=== PATIENT | male | born 1945 | race Caucasian/White ===

== ENCOUNTER → 2018-12-01 09:31 | Outpatient (CLI) | payer OTHER | END | disposition home or self-care (01) | LOC: D.HCCARDIO 09:00 | PROVIDERS: ATTEND Internal Medicine Cardiovascular Disease | DX: R07.9 Chest pain, unspecified (principal) ==

== ENCOUNTER 2018-12-21 11:44 | Outpatient (CLI) | payer OTHER ==
[~2018-12-21] VITALS: Ht 190.5 cm; Wt 131.4 kg
--- NOTE | ~2018-12-21 | HEMODYNAMI ---
PATIENT:SAMANTHA HUITRON JR MEDICAL RECORD: [id number] : 49 LOCATION:D.CAT ADMISSION DATE: 12/21/18 Generatedon:12/21/201815:32 Patient name: SAMANTHA HUITRON Patient #: [id number] SSN: : 1945 Date of study: 12/21/2018 Page: Of Hemodynamic Procedure Report Patient Data Patient Demographics Procedure consent was obtained First Name: SAMANTHA Gender: Male Last Name: ELANA Suffix: [facility] Initial: Ruma : 1945 Patient #: [id number] Age: 73 year(s) Race: Unknown Additional ID: [id number] Contact details Address: [address] [place] [address] State: [place] City: [facility] [place] Zip code: [address] Past Medical History Allergies: No known allergies Admission Admission Data Admission Date: 12/21/2018 Admission Time: 11:44 Height (in.): 73 BSA: 2.52 (m2) Height (cm.): 185.42 BMI: 38.39 (kg/m2) Weight (lbs.): 291 Weight (kg.): 132 Lab Results Lab Result Date: 12/21/2018 Lab Result Time: 12:25 Biochemistry Name Units Result Min Max BUN mg/dl 19 --(----)*- 7 18 Creatinine mg/dl 1.1 --(--*-)-- 0.6 1.3 CBC Name Units Result Min Max Hematocrit % 43.3 --(*---)-- 42 54 Hemoglobin g/dl 15.3 --(-*--)-- 13.5 17.5 Procedure Procedure Types Cath Procedure Diagnostic Procedure [facility] w/Coronaries Aortic Root Angiography Sedation Charges Moderate Sedation up to 30 minutes Procedure Description Procedure Date Procedure Date: 12/21/2018 Procedure Start Time: 15:01 Procedure End Time: 15:31 Procedure Staff Name Function Michael Preston MD Performing Physician Benitez Huerta RT Monitor Vicente Stewart RN Nurse Gloria Villegas RT Scrub Anitha Momin RN Curtain Supervisor Procedure Data Cath Procedure Fluoroscopy Diagnostic fluoroscopy Total fluoroscopy Time: 8.5 time: 8.5 min min Diagnostic fluoroscopy Total fluoroscopy dose: dose: 1677 mGy 1677 mGy Contrast Material Contrast Material Type Amount (ml) Isovue 370 145 Entry Location Entry Primary Successful Side Size Upsize Upsize Entry Closure Succes sful Closure Location (Fr) 1 (Fr) 2 (Fr) Remarks Device Remarks Radial Right 6 Fr Exoseal artery Short Estimated blood loss: 5 ml Diagnostic catheters Device Type Used For End Catheter Placement DIAGNOSTIC Jared 110cm Procedure 5Fr catheter ([id number]) DIAGNOSTIC AR MOD 5Fr Procedure Catheter ([id number]) DIAGNOSTIC AR2 MOD 5 Fr Procedure catheter ([id number]) DIAGNOSTIC AL2 5Fr Procedure catheter ([id number]) DIAGNOSTIC [place] 4.5 5Fr Procedure catheter (248094) DIAGNOSTIC Pigtail 5Fr Procedure catheter ([id number]) Procedure Complications No complications Procedure Medications Medication Administration Route Dosage 0.9% NaCl I.V. 100 ml/hr Oxygen etCO2 Nasal cannula 2 l/min Lidocaine 2% added to field 20 Heparin Flush Bag added to field 2 bags (1000units/500ml NS) Radial Cocktail added to field 1 syringe (Verapamil 2mg/Nitro 400mcg/Heparin 1500units) Versed I.V. 2 mg Fentanyl I.V. 100 mcg Hemodynamics Rest BSA: 2.52 (m2) HGB: 15.3 (g/dl) O2 Consumption: Estimated: 286.98 (ml/min) O2 Co nsumption indexed: Estimated:113.88 (ml/min/m) Heart Rate: 66 (bpm) Pressure Samples Time Site Value (mmHg) Purpose Heart Use Rate(bpm) 15:05 LV 141/-9,11 Snapshot 79 15:06 AO 104/58(75) Pullback 81 15:06 LV 138/-8,8 Pullback 81 Gradients Valve Time Site 1 Site 2 Mean SEP/DFP Peak To Heart Use (mmHg) (sec/min) Peak Rate (mmHg) (bpm) Aortic 15:06 LV AO 18 19 34 81 138/-8,8 104/58(75) Calculations Valve P-P Mean Valve Index Valve Source Name Gradient Area Flow (cm2) Aortic 34 18 34 18 Snapshots Pre Cath Intra NCS Post Cath Vital Signs Time Heart Resp SPO2 etCO2 NIBP (mmHg) Rhythm Pain Sedation Rate (ipm) (%) (mmHg) Status Level (bpm) 14:53:53 68 19 98 18 163/110(148) NSR 0 (11) 10(A) , No pain 14:58:28 70 14 98 17 163/100(130) NSR 0 (11) 9(A) , No pain 15:03:00 68 12 97 13.4 152/93(126) NSR 0 (11) 9(A) , No pain 15:07:30 75 14 98 17.1 138/80(115) NSR 0 (11) 9(A) , No pain 15:11:57 76 17 98 15.6 143/82(105) NSR 0 (11) 9(A) , No pain 15:16:25 83 17 98 16.3 138/85(105) NSR 0 (11) 9(A) , No pain 15:20:51 71 14 96 20.8 136/73(110) NSR 0 (11) 9(A) , No pain 15:25:15 65 17 98 26 130/76(97) NSR 0 (11) 10(A) , No pain 15:29:40 65 15 99 29 133/80(114) NSR 0 (11) 10(A) , No pain Medications Time Medication Route Dose Verified Delivered Reason Notes E ffectiveness by by 14:55:34 Versed I.V. 2 mg Michael Buffie for Mohan Stewart RN sedation 14:55:44 Fentanyl I.V. 100 mcg Michael Buffie for Mohan Stewart RN sedation 15:03:37 0.9% NaCl I.V. 100 Michael Anitha used for ml/hr Mohan Momin health and safety specialist 15:03:44 Oxygen etCO2 2 l/min Michael Anitha used for Nasal Mohan Momin procedure cannula RN 15:03:51 Lidocaine 2% added 20ml Michael Michael for local to vial Mohan Preston MD anesthetic field 15:03:56 Heparin Flush added 2 bags Michael Michael used for Bag to Mohan Preston MD procedure (1000units/500ml field NS) 15:04:15 Radial Cocktail added 1 Michael Michael used for (Verapamil to syringe Preston MD Preston MD procedure 2mg/Nitro field 400mcg/Heparin 1500units) Procedure Log Time Note 14:37:50 Signed procedure consent form obtained from patient. 14:37:51 Diagnostic Cath status Elective 14:37:52 Time tracking: Regular hours (M-F 7:00 - 5:00) 14:37:55 Plan of Care:Hemodynamics will remain stable., Cardiac rhythm will remain stable., Comfort level will be maintained., Respiratory function will remain adequate., Patient/ family verbilizes understanding of procedure., Procedure tolerated without complication., Recovers from procedure without complications.. 14:39:34 Vicente Stewart RN sent for patient. Start room use. 14:40:27 Patient Height : 73 inches 14:40:30 Patient Weight : 291 lbs 14:45:00 Patient received from Pre/Post Procedure Room to CCL 1 Alert and oriented. Tansferred to table in Supine position. 14:45:02 Warm blankets applied, and cristian hugger turned on for patient comfort. 14:45:02 Correct patient and procedure confirmed by team. 14:45:03 ECG and BP/O2 sat monitors applied to patient. 14:45:47 NEEDLE Cook 21G 4cm Radial ([id number]) opened to sterile field. 14:46:28 H&P Date Dictated: 11/11/2018 Within 30 days and on chart., H&P Addendum completed by physician on day of procedure. (MUST COMPLETE FOR ALL OUTPATIENTS). 14:46:36 Pre-procedure instructions explained to patient. 14:46:38 Pre-op teaching completed and patient verbalized understanding. 14:47:24 Family in waiting room. 14:47:32 Patient NPO since Breakfast. 14:47:40 Patient allergic to No known allergies 14:47:42 Is the patient allergic to Iodine/contrast media? No. 14:47:43 Is patient on blood thinner?No 14:47:44 Patient diabetic? No. 14:47:58 Previous problem with sedation/anesthesia? No ? 14:47:59 Snore? Yes 14:48:00 Sleep apnea? No 14:48:00 Deviated septum? No 14:48:01 Opens mouth fully? Yes 14:48:02 Sticks out tongue? Yes 14:48:09 Airway obstruction? No ? 14:48:11 Dentures? No ? 14:48:15 Pre procedure: right dorsailis pedis pulse 2+ Normal; easily identifiable; not easily obliterated 14:48:21 IV patent on arrival in left hand with 0.9% NaCl at [facility]. 14:50:09 Lab Result : BUN 19 mg/dl 14:50:09 Lab Result : Creatinine 1.1 mg/dl 14:50:09 Lab Result : Hemoglobin 15.3 g/dl 14:50:09 Lab Result : Hematocrit 43.3 % 14:50:14 Lab results completed and on chart. 14:50:19 Modified Jonathan's test Ulnar > 7 seconds. 14:50:28 Right Radial & Right Groin area was prepped with chlora-prep and draped in sterile fashion 14:50:31 Alarms reviewed by R. N. 14:50:32 Sharps counted by scrub and verified by R.N. 14:50:34 Use device set Radial Dx or PCI 14:50:35 ACIST Syringe (04380) opened to sterile field. 14:50:35 Medline Cath Pack ([id number]) opened to sterile field. 14:50:36 Bag Decanter (2002S) opened to sterile field. 14:50:37 ACIST Hand Control (92836) opened to sterile field. 14:50:37 ACIST Manifold (97833) opened to sterile field. 14:50:37 Tegaderm 4 x 4 (1626W) opened to sterile field. 14:50:38 MBrace Wrist Support ([id number]) opened to sterile field. 14:50:39 SHEATH 6FR Slender (801060) opened to sterile field. 14:50:40 DIAGNOSTIC WIRE .035 260cm J wire (557110) opened to sterile field. 14:52:31 Vital chart was started 14:52:32 Baseline sample Acquired. 14:52:46 Rhythm: sinus rhythm 14:52:47 Full Disclosure recording started 14:54:02 Physician arrived 14:54:03 --------ALL STOP TIME OUT------ 14:54:03 Final Timeout: patient, procedure, and site verified with staff and physician. All members of the team are in agreement. 14:54:05 Right Radial & Right Groin site verified by team. 14:54:07 Maximum allowable Isovue 300 dose 300ml. Physician notified. (300ml for normal creatinines. For patients with creatinine of 1.7 or higher multiply weight(kg) x 5 divided by creatinine.) 14:54:11 Fire Safety Assessment: A--An alcohol-based skin anteseptic being used preoperatively., C--Open oxygen or nitrous oxide is being used., D--An ESU, laser, or fiber-optic light is being used. 14:54:14 Physical assessment completed. ASA score P 2 - A patient with mild systemic disease as per Michael Preston MD. 14:54:16 Sedation plan: IV Moderate Sedation Medication:Versed, Fentanyl 14:55:34 Versed 2 mg I.V. was administered by Vicente Stewart RN; for sedation; 14:55:44 Fentanyl 100 mcg I.V. was administered by Vicente Stewart RN; for sedation; 14:59:28 Zero performed for pressure channel P1 15:01:20 Procedure started. 15:01:24 Local anesthetic to right radial artery with Lidocaine 2% by Michael Preston MD.INITIAL ACCESS ONLY 15:03:18 A 6 Fr Short sheath was inserted into the Right Radial artery 15:03:37 0.9% NaCl 100 ml/hr I.V. was administered by Anitha Momin RN; used for procedure; 15:03:44 Oxygen 2 l/min etCO2 Nasal cannula was administered by Anitha Momin RN; used for procedure; 15:03:51 Lidocaine 2% 20ml vial added to field was administered by Michael Preston MD; for local anesthetic; 15:03:56 Heparin Flush Bag (1000units/500ml NS) 2 bags added to field was administered by Michael Preston MD; used for procedure; 15:04:08 A DIAGNOSTIC Jared 110cm 5Fr catheter (062010) was advanced over the wire and used for Procedure. 15:04:15 Radial Cocktail (Verapamil 2mg/Nitro 400mcg/Heparin 1500units) 1 syringe added to field was administered by Michael Preston MD; used for procedure; 15:05:40 LV gram done using PARK 15:05:44 Injector settings: Ml/sec: 5, Volume: 15, 15:05:45 LV hemodynamics recorded. 15:05:54 EF : 60 % 15:06:31 LCA angiography performed. 15:09:41 Catheter exchanged over wire. 15:09:54 A DIAGNOSTIC AR MOD 5Fr Catheter (024634W) was advanced over the wire and used for Procedure. 15:12:11 RCA angiography performed. 15:12:57 Catheter exchanged over wire. 15:13:12 A DIAGNOSTIC AR2 MOD 5 Fr catheter (458870R) was advanced over the wire and used for Procedure. 15:15:39 Catheter exchanged over wire. 15:16:03 A DIAGNOSTIC AL2 5Fr catheter (785978F) was advanced over the wire and used for Procedure. 15:16:51 RCA angiography performed. 15:18:39 Catheter exchanged over wire. 15:18:50 A DIAGNOSTIC [place] 4.5 5Fr catheter (919632) was advanced over the wire and used for Procedure. 15:20:12 RCA angiography performed. 15:20:40 Catheter exchanged over wire. 15:20:51 A DIAGNOSTIC Pigtail 5Fr catheter (277241X) was advanced over the wire and used for Procedure. 15:21:45 Aortic Root visualized 15:23:52 Catheter removed. 15:23:58 EXOSEAL 5Fr (EX500) opened to sterile field. 15:24:07 Sheath removed intact; hemostasis achieved with Exoseal to the Right Radial artery. 15:24:09 Procedure ended.(Physican Out) 15:25:51 TR BAND Large ([id number]) opened to sterile field. 15:27:57 Fluoroscopy time 08.50 minutes. 15:28:56 Fluoroscopy dose: 1677 mGy 15:28:56 Flurop Dose total: 1677 15:29:09 Contrast amount:Isovue 370 145ml. 15:29:14 Sharps counted by scrub and verified by R.N. 15:29:16 TR band inflated with 12cc of air. 15:29:18 Insertion/operative site no bleeding no hematoma. 15:29:22 Post right radial artery:stable, soft, clean and dry 15::23 Post Procedure Pulses reassessed and unchanged ::25 Post-procedure physical assessment completed. ASA score P 2 - A patient with mild systemic disease as per Michael Preston MD. 15:29:27 Post procedure rhythm: unchanged. ::29 Estimated blood loss: 5 ml 15::31 Post procedure instruction explained to patient.Patient verbalizes understanding. ::31 Patient needs reinforcement of post procedure teaching. 15:29:45 Procedure type changed to Cath procedure, Diagnostic procedure, LHC, LHC w/Coronaries, Aortic Root Angiography, Sedation Charges, Moderate Sedation up to 30 minutes 15:31:23 Procedure and supply charges have been captured, reviewed, submitted and are correct. 15:31:25 Procedure Complication : No complications 15:31:27 Vital chart was stopped 15:31:28 See physician's report for complete and final results. 15:31:30 Report given to Pre/Post Procedure Room. 15:31:33 Patient transfered to Pre/Post Procedure Room with Stretcher. 15:31:35 Procedure ended. 15:31:35 Full Disclosure recording stopped 15::45 End room use (Document Last) Device Usage Item Name Manufacture Quantity Catalog Hospital Part Current Minimal Lot# / Number Charge Number Stock Stock Serial# Code ACIST Acist 1 53735 372724 211493 399212 20 Syringe Medical (41206) Systems Inc Medline Medline 1 [id number] 153047 68098 558381 5 Cath Pack ([id number]) Bag Microtek 1 812637 49849 220264 5 Decanter Medical Inc. () ACIST Hand Acist 1 74483 288507 951678 582750 5 Control Medical (30612) Systems Inc ACIST Acist 1 06531 347493 711842 498228 5 Manifold Medical (13923) Systems Inc Tegaderm 4 3M 1 1626W 129866 197331 592200 5 x 4 (1626W) MBrace Advanced 1 140-0250-00 558286 28190 393334 5 Wrist Vascular Support Dynamics ([id number]) SHEATH 6FR Terumo 1 [id number] 216135 142322 044996 5 Slender (80-1060) DIAGNOSTIC St Jeff 1 444287 854431 999704 765316 30 WIRE .035 260cm J wire (305970) DIAGNOSTIC Terumo 1 57-8412 530850 013094 373362 5 Jared 110cm 5Fr catheter (965969) DIAGNOSTIC Cardinal 1 267228R 926055 002460 477884 15 AR MOD 5Fr Health Catheter (677795X) DIAGNOSTIC Cardinal 1 838338O 442138 768683 520686 20 AR2 MOD 5 Health Fr catheter (394040G) DIAGNOSTIC Cardinal 1 170696T 608371 219436 686163 15 AL2 5Fr Health catheter (011599N) DIAGNOSTIC Terumo 1 40-5012 359966 564157 301405 5 [place] 4.5 5Fr catheter (450102) DIAGNOSTIC Cardinal 1 604802P 504257 484624 213836 5 Pigtail 5Fr Health catheter (753533Z) EXOSEAL 5Fr Cardinal 1 EX500 952238 984968 909426 10 (EX500) Health TR BAND Terumo 1 AIR68-YOJ 936713 996678 469371 40 Large (GWO38DMM) NEEDLE [facility] 1 N24530 896980 285778 032167 5 21G 4cm Radial (M77921) Signature Audit [place] Stage Time Signature Unsigned Intra-Procedure 12/21/2018 Benitez Huerta 3:32:33 PM RT(R) Signatures Monitor : Benitez Huerta RT Signature : Date : Time : [facility] [address] [place] [address]
[2018-12-21] MEDS ORDERED: ASPIRIN325 MG PO (12:14)
[2018-12-21] MEDS ORDERED: NORVASC5 MG PO (12:14)
[2018-12-21] MEDS ORDERED: LOSARTAN/HCT TAB 100 PO (12:14)
[2018-12-21] MEDS ORDERED: FLUTICASONE PRO16 GM NASAL (12:15)
[2018-12-21] MEDS ORDERED: ALBUTEROL SULF8.5 GM INH (12:16)
[2018-12-21] MEDS ORDERED: IPRAT-ALBUT 0.5-3 ML UPD (12:17)
[2018-12-21] MEDS ORDERED: VALIUM10 MG PO (12:17)
[2018-12-21 12:19] VITALS: BP 127/75; Ht 190.5 cm; Wt 131.4 kg
[2018-12-21 12:29] LABS: BASOPHILS 0.8 % (0-2); EOSINOPHILS 7.9 % (0-7); HEMATOCRIT 43.3 % (42.0-54.0); HEMOGLOBIN 15.2 g/dL (13.5-17.5); IMMATURE GRANULOCYTES 0.6 % (0-5); LYMPHOCYTES 26.3 % (15-50); MCH 33.7 pg (26.0-34.0); MCHC 35.1 g/dL (31.0-37.0); NEUTROPHILS 56.4 % (40-80); PLATELET COUNT 227 10x3/uL (130-400); RBC 4.51 10x6/uL (4.20-6.10); RDW 12.8 % (11.5-14.5); WBC 8.8 10x3/uL (4.8-10.8)
[2018-12-21 12:43] LABS: ANION GAP 11.6 mmol/L (8-16); CALCIUM 9.4 mg/dL (8.5-10.1); CARBON DIOXIDE 27.8 mmol/L (21.0-32.0); CREATININE - SERUM 1.1 mg/dL (0.6-1.3); POTASSIUM - SERUM 3.4 mmol/L (3.5-5.1)
--- NOTE | 2018-12-21 15:35 | NUR ---
PT ARRIVED BY STRETCHER. PLACED ON MONITORS AND ASSESSMENT COMPLETED. RIGHT RADIAL TR BAND IN PLACE. CALL LIGHT WITHIN REACH. FAMILY AT BEDSIDE AND SPOKE WITH PT'S FAMILY AND PT.
--- NOTE | 2018-12-21 15:50 | NUR ---
PT RESTING COMFORTABLY. RIGHT RADIAL TR BAND IN PLACE. NO BLEEDING/HEMATOMA NOTED. VSS.
--- NOTE | 2018-12-21 16:18 | NUR ---
PT SITTING UP AND EATING/DRINKING. DENIES NAUSEA. RIGHT RADIAL TR BAND IN PLACE. NO BLEEDING/HEMATOMA NOTED.
--- NOTE | 2018-12-21 16:35 | NUR ---
3cc OF AIR REMOVED FROM TR BAND. NO BLEEDING/HEMATOMA NOTED. VSS. PT SITTING UP AND VISITING WITH FAMILY. TOLERATED FOOD. DENIES NAUSEA OR PAIN.
--- NOTE | 2018-12-21 16:50 | NUR ---
3cc OF AIR REMOVED FROM TR BAND. PT TOLERATED WELL. NO BLEEDING/HEMATOMA NOTED.
--- NOTE | 2018-12-21 17:10 | NUR ---
3cc OF AIR REMOVED FROM TR BAND. PT TOLERATED WELL. LEFT HAND PIV D/C'D WITH CATH TIP INTACT. PT INSTRUCTED TO GET UP AND DRESSED. FAMILY AT BEDSIDE.
--- NOTE | 2018-12-21 17:26 | NUR ---
PT AMBULATED TO RESTROOM. VOIDED WITHOUT DIFFICULTY. BACK TO ROOM. STEADY GAIT NOTED.
--- NOTE | 2018-12-21 17:35 | NUR ---
TR BAND REMOVED. DRESSING APPLIED. NO BLEEDING/HEMATOMA NOTED. RIGHT WRIST BRACE ON PT. INSTRUCTED TO KEEP ON FOR 2 HOURS AFTER ARRIVAL HOME. HE VOICED UNDERSTANDING.
--- NOTE | 2018-12-21 17:45 | NUR ---
DISCUSSED DISCHARGE INSTRUCTIONS WITH PT AND PT'S FAMILY. THEY VOICED UNDERSTANDING.
--- NOTE | 2018-12-21 18:00 | NUR ---
PT TAKEN OUT TO VEHICLE BY WHEELCHAIR. NO S/S OF DISTRESS NOTED. ALL BELONGINGS AND PAPERWORK IN HAND.
== END 2018-12-21 18:00 | disposition home or self-care (01) ==
LOC: D.CATH 11:44
PROVIDERS: ATTEND Internal Medicine Cardiovascular Disease
DX: I25.119 Atherosclerotic heart disease of native coronary artery with unspecified angina pectoris (principal); Z01.812 Encounter for preprocedural laboratory examination; I10 Essential (primary) hypertension; J45.909 Unspecified asthma, uncomplicated; Z82.49 Family history of ischemic heart disease and other diseases of the circulatory system

== ENCOUNTER 2018-12-30 12:49 | Inpatient (IN) | payer OTHER ==
[~2018-12-30 12:49] MED LIST: ALBUTEROL SULF8.5 GM INH; ASPIRIN325 MG PO; FLUTICASONE PRO16 GM NASAL; IPRAT-ALBUT 0.5-3 ML UPD; LOSARTAN/HCT TAB 100 PO; NORVASC5 MG PO; VALIUM10 MG PO
[2018-12-30] MEDS ORDERED: HYDROCODON-ACE1 EA10 PO (13:22)
[2018-12-30 14:44] LABS: BASOPHILS 0.9 % (0-2); EOSINOPHILS 9.9 % (0-7); HEMATOCRIT 46.4 % (42.0-54.0); HEMOGLOBIN 16.1 g/dL (13.5-17.5); IMMATURE GRANULOCYTES 0.5 % (0-5); LYMPHOCYTES 29.9 % (15-50); MCH 33.7 pg (26.0-34.0); MCHC 34.7 g/dL (31.0-37.0); MCV 97.1 fL (80.0-100.0); MEAN PLATELET VOLUME 9.8 fL (7.4-10.4); MONOCYTES 7.9 % (2-11); NEUTROPHILS 50.9 % (40-80); PLATELET COUNT 241 10x3/uL (130-400); RBC 4.78 10x6/uL (4.20-6.10); RDW 12.7 % (11.5-14.5); WBC 9.8 10x3/uL (4.8-10.8)
[2018-12-30 14:52] LABS: INR 1.03 (0.85-1.17)
[2018-12-30 14:53] LABS: APPEARANCE CLEAR (CLEAR); APTT 28.8 SECONDS (22.8-39.4); BILIRUBIN NEGATIVE (NEGATIVE); COLOR YELLOW (YELLOW); GLUCOSE NEGATIVE (NEGATIVE); KETONE NEGATIVE (NEGATIVE); NITRITE NEGATIVE (NEGATIVE); PROTEIN NEGATIVE (NEGATIVE); SPECIFIC GRAVITY 1.015 (1.005-1.020); UROBILINOGEN NORMAL (NORMAL)
[2018-12-30 15:06] LABS: ALBUMIN 4.1 g/dL (3.4-5.0); ANION GAP 16.3 mmol/L (8-16); BILIRUBIN - TOTAL 0.89 mg/dL (0.2-1.3); CALCIUM 9.4 mg/dL (8.5-10.1); CARBON DIOXIDE 25.2 mmol/L (21.0-32.0); CREATININE - SERUM 1.1 mg/dL (0.6-1.3); POTASSIUM - SERUM 3.5 mmol/L (3.5-5.1); PROTEIN - SERUM 7.3 g/dL (6.4-8.2); T4 THYROXIN - FREE 0.94 ng/dL (0.76-1.46); THYROID STIMULATING HORMONE 0.83 uIU/mL (0.36-3.74); URIC ACID 6.6 mg/dL (2.6-7.2)
[2019-01-02] VITALS (37 sets, daily range): BP systolic 89–167; BP diastolic 47–100; BMI 37.3; BMI 37.0
--- NOTE | 2019-01-02 14:30 | NUR ---
ARRIVED FROM OR AROUND 1416 VIA BED. ON VENT R-14 TV500, FIO2 100%, PEEP 5. ETT 8.0 24 AT THE LIP. MIDSTERNAL INCISION WITH DRESSING CDI. CT X 3 9(Y'D TOGETHER) CONNECTED TO 20CM H20 SUCTION. NO AIR LEAK NOTED. L-MORTEZA DRAIN NOTED. TPM WIRES X 1 COILED AND SECURED. CRITICORE REMY IN PLACE WITH YELLOW URINE NOTED. R-RADIAL JOVANY SECURED WITH WRIST PROTECTOR. R-LE HARVEST SITES WRAPPED IN [place] DRESSING FROM GROIN TO ANKEL. PEDAL PULSES PALP. SAUD HOSE ON LEFT LE. WRIST RESTRAINTS IN PLACE PER ORDER. CONNECTED TO ICU MONITOR. HAS R-IJ CVL WITH PLASMOLYTE AT 100ML/HR. WILL CONTINUE TO MONITOR CLOSELY.
--- NOTE | 2019-01-02 15:06 | NUR ---
FIO2 DECREASED TO 80% BY RESPIRATORY THERAPY.
--- NOTE | 2019-01-02 15:41 | NUR ---
VENTS SETTING CHANGED BY RT SIMV, R-12, TV 500, PS 10, FIO2 40%, PEEP OF 5. PT OPENS EYES TO VOICE. FOLLOWS SIMPLE COMMANDS. WILL CONTINUE TO MONITOR CLOSELY.
--- NOTE | 2019-01-02 16:40 | NUR ---
ETT PULLED BACK TO 21 AT THE LIP BY RT PER DR. HAYNES.
--- NOTE | 2019-01-02 17:20 | NUR ---
EBONI DRIP TURNED OFF AT THIS TIME. PT OPENING EYES SPONTANOUSLY. ON CPAP TRIAL AT THIS TIME. WILL CONTINUE TO MONITOR CLOSELY.
--- NOTE | 2019-01-02 17:43 | NUR ---
DR. HAYNES NOTIFIED OF BLOOD GAS RESULTS. ORDERED TO EXTUBATE AND PLACE ON BIPAP.
--- NOTE | 2019-01-02 17:57 | NUR ---
BIPAP SETTINGS R-10 FIO2 40%.
--- NOTE | 2019-01-02 18:19 | NUR ---
RATES PAIN 8/10 ON HIS BACK AND CHEST. 2MG MORPHINE IV GIVEN FOR PAIN PER ORDERS.
--- NOTE | 2019-01-02 19:09 | NUR ---
REPORT RECEIVED, SHIFT ASSESSMENT COMPLETED PER FLOW SHEET. ON BIPAP AT 40%. RT IJ CVL PATENT, INFUSING PLASMOLYTE AT 100 ML/HR AND ZINACEF AT 11.4 ML/HR. X3 SUBSTERNAL CT TO 20 CM SUCTION, NO AIR LEAK NOTED, X1 CT TO MORTEZA DRAIN, COMPRESSED. REMY CATHETER TO GRAVITY SECURED. SAUD NUGENT AND SCD'S ON. SEE FLOW SHEET FOR COMPLETE ASSESSMENT. WILL CONTINUE TO MONITOR.
--- NOTE | 2019-01-02 19:20 | NUR ---
DR. HAYNES AT BEDSIDE TO SEE PATIENT. ORDERS RECEIVED TO KEEP PATIENT ON BIPAP AND OK TO GIVE BREAKS TOLERATED.
--- NOTE | 2019-01-02 20:01 | NUR ---
FAMILY AT BEDSIDE, UPDATE GIVEN, QUESTIONS ANSWERED. SECURITY CALL CODE SET UP BY PATIENT.
--- NOTE | 2019-01-02 20:14 | NUR ---
BIPAP REMOVED AND PLACED ON 4 L NC. WATER PROVIDED. COUGH/DEEP BREATHING AND USE OF IS ENCOURAGED. COUGH WEAK, NON-PRODUCTIVE. PULLING 750 X10 ON IS. AFTER INTERVENTIONS PATIENT O2 SAT NOTED TO BE 88%. PATIENT PLACED BACK ON BIPAP AND O2 SAT BACK UP TO 93%. REPOSITIONED IN BED. WILL CONTINUE TO MONITOR.
--- NOTE | 2019-01-02 22:00 | NUR ---
IS ENCOURAGED, PULLING 1000 X10. COUGH WEAK AND NON-PRODUCTIVE. DENIES OTHER NEEDS. CALL LIGHT WITHIN REACH. WILL CONTINUE TO MONITOR.
--- NOTE | 2019-01-02 23:01 | NUR ---
REASSESSMENT COMPLETED PER FLOW SHEET, SEE FOR DETAILS. WATER PROVIDED. DENIES OTHER NEEDS. USE OF IS ENCOURAGED, PULLING 1000 X10. WILL CONTINUE TO MONITOR.
[2019-01-03] VITALS (93 sets, daily range): BP systolic 111–166; BP diastolic 65–102; BMI 36.9
--- NOTE | 2019-01-03 00:45 | NUR ---
PATIENT IN AFIB, HR 90-110'S. CALLED AND SPOKE TO DR. HAYNES, NEW ORDERS RECEIVED FOR AMIODARONE BOLUS AND TO OBTAIN AM LABS NOW, AND TREAT POTASSIUM LEVEL PER PROTOCOL.
--- NOTE | 2019-01-03 00:52 | NUR ---
C/O NAUSEA, PRN ZOFRAN GIVEN. DENIES OTHER NEEDS. WILL CONTINUE TO MONITOR.
--- NOTE | 2019-01-03 02:00 | NUR ---
RESTING, DENIES NEEDS. CALL LIGHT WITHIN REACH.
--- NOTE | 2019-01-03 03:01 | NUR ---
REASSESSMENT COMPLETED PER FLOW SHEET, SEE FOR DETAILS. WATER PROVIDED.
--- NOTE | 2019-01-03 05:00 | NUR ---
RESTING, WATER PROVIDED, DENIES OTHER NEEDS. CALL LIGHT WITHIN REACH.
--- NOTE | 2019-01-03 06:30 | NUR ---
SUBSTERNAL DRESSING CHANGED PER DOCTOR'S ORDERS. TPM WIRES INTACT. COMPLETE BED BATH GIVEN.
--- NOTE | 2019-01-03 06:33 | NUR ---
ORAL CARE DONE WITH PERIDEX
[2019-01-03 06:39] LABS: HEMATOCRIT 39.6 % (42.0-54.0); HEMOGLOBIN 13.3 g/dL (13.5-17.5); MCH 32.8 pg (26.0-34.0); MCHC 33.6 g/dL (31.0-37.0); MCV 97.5 fL (80.0-100.0); MEAN PLATELET VOLUME 10.2 fL (7.4-10.4); RBC 4.06 10x6/uL (4.20-6.10); RDW 12.9 % (11.5-14.5); WBC 17.8 10x3/uL (4.8-10.8)
[2019-01-03 06:57] LABS: ALKALINE PHOSPHATASE 44 U/L (46-116); ALT (SGPT) 27 U/L (10-68); BILIRUBIN - TOTAL 1.33 mg/dL (0.2-1.3); CALC OSMOLALITY 284 mosm/kg (275-300); CARBON DIOXIDE 23.7 mmol/L (21.0-32.0); CHLORIDE - SERUM 106 mmol/L (98-107); POTASSIUM - SERUM 4.1 mmol/L (3.5-5.1); PROTEIN - SERUM 5.6 g/dL (6.4-8.2); SODIUM 140 mmol/L (136-145); UREA NITROGEN 18 mg/dL (7-18); eGFR NON AFRICAN AMERICAN 78 mL/min (90-120)
--- NOTE | 2019-01-03 07:00 | NUR ---
ASSISSTED OOB TO CHAIR X3 PERSON ASSISST. TOLERATED WELL. ON 4 L NC, O2 SAT 93%. INSTRUCTED PATIENT TO COUGH/DEEP BREATHE AND USE IS. PULLING 1240 X10 ON IS. COUGH STRONG AND NON-PRODUCTIVE.
[2019-01-03 07:02] LABS: GLUCOSE 170 mg/dL (74-106)
--- NOTE | 2019-01-03 07:42 | NUR ---
DR. HAYNES IN UNIT. ORDERED TO DC JOVANY, REMY CATHETER, AND PLASMOLYTE, AND TO KEEP PT OFF BIPAP DURING DAY. BIPAP FOR AN HOUR IF NEEDED Q 4HRS.
--- NOTE | 2019-01-03 08:47 | NUR ---
SPOKE WITH VENECIA ELANA PATIENT'S SON. PASS CODE VERIFIED. BRIEF UPDATE GIVEN. LOPRESSOR 25MG TAB GIVEN PER DR. HAYNES. JOVANY DC'D PER ORDERS. REMY CATHETER DC'D PER ORDERS. URINAL PROVIDED. PT ATE 100% OF CLEAR LIQUID MEAL. WILL CONTINUE TO MONITOR.
--- NOTE | 2019-01-03 09:55 | OP ---
PATIENT NAME: IVANNA HUITRON JR MEDICAL RECORD: [id number] :49 LOCATION:D.CVI D.CV02 ADMISSION DATE:01/02/19 SURGEON: CAMDEN HAYNES MD DATE OF OPERATION: 01/02/2019 SURGEON: Camden Haynes MD MANAGER MILITARY: Cipriano Delatorre. OPERATION PERFORMED: 1. Coronary artery bypass graft times 4 (left internal mammary artery to LAD, reverse saphenous vein graft from aorta to first diagonal, aorta to obtuse marginal #1, and aorta to ongoing right coronary artery). 2. Endoscopic saphenous vein harvest. PREOPERATIVE DIAGNOSIS: Coronary artery disease. POSTOPERATIVE DIAGNOSIS: Coronary artery disease. ANESTHESIA: General endotracheal anesthesia. ESTIMATED BLOOD LOSS: Total cardiopulmonary bypass with Cell Saver retransfusion. COMPLICATIONS: None. SPECIMEN: None. CONDITION: Stable. DISPOSITION: CV ICU. OPERATIVE FINDINGS: 1. Good quality, but thin-walled greater saphenous vein from the right lower extremity. 2. A 50% ejection fraction by transesophageal echocardiography with mild left ventricular hypertrophy. 3. Relatively large heart, but not overly fatty. 4. Good quality left internal mammary artery, the LAD was a severely diseased 2.0-mm vessel at the site of anastomosis and a 1.5 mm probe passed distally to the apex. 5. First diagonal vessel was a 1.5 mm vessel. 6. First obtuse marginal was 2.0 mm, the second obtuse marginal was smaller and not grafted. 7. The right coronary artery and posterior descending artery were completely calcified throughout and not amenable to bypass, the ongoing right coronary artery was a 2.0-mm vessel. OPERATIVE INDICATION: Coronary artery disease. OPERATIVE SUMMARY IN DETAIL: The patient was brought to the operating suite. General anesthesia obtained. The patient was prepped and draped. Greater saphenous vein was harvested from this patient's right lower extremity utilizing endoscopic technique. Side branches were divided with electrocautery. The vessel was ligated proximally and distally and removed. Side branches were tied OPERATIVE REPORT [id number] IVANNA HUITRON JR and thin spots and leakage sites were oversewn. Later, the leg was irrigated and closed in 2 layers and wrapped with elastic wrap. Median sternotomy incision was made. Subcutaneous tissue divided with electrocautery. The sternum was divided with a saw. The left hemisternum was elevated. Left internal mammary artery and vein were taken down as a pedicle graft. Sternal retractor was placed. Pericardium was opened. Heparin was given. Aorta was cannulated. Dual stage venous cannula was inserted. The internal mammary was clipped distally and made ready for anastomosis. Activated clotting time was appropriately elevated. The patient was placed on cardiopulmonary bypass. Sites for distal anastomosis were selected. Antegrade cardioplegic cannula was inserted. The patient was cooled to about 34 degrees by allowing the temperature to drift. Crossclamp was placed. Cardioplegia was given antegrade and this was repeated at 50-minute intervals including down the completed vein graft. Distal anastomoses were performed in standard technique. Proximal anastomosis with single cross-clamp technique. Aortic root de-aired by removing the cross clamp, venting the root, tying the proximal anastomoses, deairing the vein grafts and restoring flow. Proximal and distal anastomotic sites inspected for bleeding. Single sutures in the proximal anastomotic site. The patient resumed a spontaneous rhythm, fully rewarmed, weaned from cardiopulmonary bypass and was stable. The patient was decannulated. The cannula sites were oversewn. Protamine was given. Thorough irrigation was undertaken. Hemostasis was assured and all grafts lay appropriately. The drains were placed in the mediastinum and both pleural cavities. Ventricular pacing wires were placed. Pericardial fat was loosely reapproximated at midline. Left chest was evacuated and irrigated. The internal mammary artery site was inspected for bleeding. Sternum closed with wires. The patient was stable. The chest closed. Fascia was closed. Subcutaneous tissue was closed. Skin was closed. Dermabond was placed. The needle and sponge counts were reported as correct. The patient was taken to the ICU in stable condition. TRANSINT:[id number] Voice Confirmation ID: [id number] DOCUMENT ID: [id number] CAMDEN HAYNES MD at 0955 CC: FARIDEH MUÑIZ M.D. and EDUARDO BARNETT MD [id number] DICTATION DATE: 01/02/191846 RN NEW GRAD: 01/02/19 2194 ADM IN [place] [id number] [place] [id number]
--- NOTE | 2019-01-03 10:15 | NUR ---
DR. HAYNES REMOVED CHEST TUBES. L MORTEZA DRAIN LEFT IN PLACE. DRESSING CHANGED AT THIS TIME. TPM WIRES COILED AND SECURED. PT WAS GIVEN MORPHINE 2MG IV BEFORE REMOVAL OF CHEST TUBES PER DR. HAYNES. PT TOLERATED WELL. RESTING IN BED. WILL CONTINUE TO MONITOR.
--- NOTE | 2019-01-03 16:32 | NUR ---
BLOOD GLUCOSE 228. 2UNITS OF INSULIN GIVEN PER PROTOCOL. INSULIN DRIP STARTED AT 1UNIT/HR PER PROTOCOL. BP 159/80. CURRENTLY ON 6.8ML OF NITRO. 10MG IV APRESOLINE GIVEN PER ORDERS. WILL CONTINUE TO MONITOR. AND TREAT.
--- NOTE | 2019-01-03 17:45 | NUR ---
PT DINNER TRAY HAS NOT YET ARRIVED. ORDERED OVER AN HOUR AGO. CALLED [facility] ABOUT ORDER AND WAS TOLD THEY WERE IN THE PROCESS OF MAKING THE TRAY. PT UPDATED
--- NOTE | 2019-01-03 19:20 | NUR ---
REPORT RECEIVED, SHIFT ASSESSMENT COMPLETED PER FLOW SHEET, SEE FOR DETAILS. COUGH/DEEP BREATHING AND USE OF IS ENCOURAGED. COUGH STRONG. PULLING [phone] ON IS. ON 4 L NC. SEE FLOW SHEET FOR COMPLETE ASSESSMENT.
--- NOTE | 2019-01-03 19:40 | NUR ---
INFORMED BY DAY SHIFT RN THAT COBAN DRESSING IS TO BE REMOVED PER DOCTOR'S ORDERS. RT LEG COBAN DRESSING REMOVED, X3 INCISION SITES NOTED, NO DRAINAGE, WELL APPROXIMATED.
--- NOTE | 2019-01-03 19:50 | NUR ---
PT REQUESTING TO USE URINAL. URINAL PROVIDED, VOIDED 110 MLS VINNY UOP. DENIES OTHER NEEDS. CALL LIGHT WITHIN REACH.
--- NOTE | 2019-01-03 20:45 | NUR ---
SCHEDULED MEDS GIVEN, WATER PROVIDED. USE OF IS ENCOURAGED, PULLING [phone] X10. DENIES OTHER NEEDS. CALL LIGHT WITHIN REACH.
--- NOTE | 2019-01-03 22:00 | NUR ---
PATIENT RESTING WITH EYES CLOSED, O2 SAT NOTED TO BE 88%. PLACED ON BIPAP 40% AT THIS TIME. O2 SAT INCREASED TO 91%. WILL CONTINUE TO MONITOR.
--- NOTE | 2019-01-03 23:01 | NUR ---
REASSESSMENT COMPLETED PER FLOW SHEET, SEE FOR DETAILS. NO ACUTE DISTRESS NOTED. WATER PROVIDED. DENIES OTHER NEEDS. CALL LIGHT WITHIN REACH.
[2019-01-04] VITALS (27 sets, daily range): BP systolic 105–156; BP diastolic 64–101
--- NOTE | 2019-01-04 00:50 | NUR ---
AMIODARONE BOLUS ADMINISTERED.
[2019-01-04 01:16] LABS: HEMATOCRIT 36.9 % (42.0-54.0); HEMOGLOBIN 12.7 g/dL (13.5-17.5); MCH 33.7 pg (26.0-34.0); MCHC 34.4 g/dL (31.0-37.0); MCV 97.9 fL (80.0-100.0); MEAN PLATELET VOLUME 9.7 fL (7.4-10.4); RBC 3.77 10x6/uL (4.20-6.10); RDW 12.6 % (11.5-14.5); WBC 20.7 10x3/uL (4.8-10.8)
[2019-01-04 01:25] LABS: ALBUMIN 2.9 g/dL (3.4-5.0); ALKALINE PHOSPHATASE 43 U/L (46-116); ALT (SGPT) 28 U/L (10-68); BILIRUBIN - TOTAL 1.02 mg/dL (0.2-1.3); CALC OSMOLALITY 276 mosm/kg (275-300); CALCIUM 8.1 mg/dL (8.5-10.1); CARBON DIOXIDE 27.6 mmol/L (21.0-32.0); CHLORIDE - SERUM 102 mmol/L (98-107); CREATININE - SERUM 0.8 mg/dL (0.6-1.3); GLUCOSE 126 mg/dL (74-106); POTASSIUM - SERUM 3.7 mmol/L (3.5-5.1); SODIUM 137 mmol/L (136-145); UREA NITROGEN 16 mg/dL (7-18); eGFR NON AFRICAN AMERICAN > 90 mL/min (90-120)
--- NOTE | 2019-01-04 01:51 | NUR ---
CHEMISTRY LAB RESULTS NOW AVAILABLE, REVIEWED, POTASSIUM LEVEL TREATED PER PROTOCOL.
--- NOTE | 2019-01-04 03:01 | NUR ---
REASSESSMENT COMPLETED PER FLOW SHEET, SEE FOR DETAILS. ON BIPAP AT 40%. DENIES NEEDS AT THIS TIME. CALL LIGHT WITHIN REACH. WILL CONTINUE TO MONITOR.
--- NOTE | 2019-01-04 05:30 | NUR ---
COMPLETE BED BATH GIVEN. COMPLETE BED LINEN CHANGE PROVIDED. TOLERATED WELL. PLACED ON 4 L NC.
--- NOTE | 2019-01-04 06:10 | NUR ---
SIGNIFICANT OTHER DARIEN CALLED, SECURITY CALL CODE OBTAINED. UPDATE GIVEN.
--- NOTE | 2019-01-04 06:25 | NUR ---
ORAL CARE DONE WITH PERIDEX
--- NOTE | 2019-01-04 06:30 | NUR ---
ASSISSTED OOB TO CHAIR, TOLERATED WELL. CALL LIGHT AND BELONGINGS WITHIN REACH.
[2019-01-04 06:55] LABS: MAGNESIUM - SERUM 2.5 mg/dL (1.8-2.4); POTASSIUM - SERUM 3.9 mmol/L (3.5-5.1)
--- NOTE | 2019-01-04 09:38 | NUR ---
0700 PT RECIEVED UP IN CHAIR ALERT AND ORIENTED O2 4L NC, PULLING 1500 ON IS, GOOD COUGH, PRODUCTIVE, R IJ CVL DRESSING CDI, SALINE LOCKED, MIDSTERNAL AND SUBSTERNAL DRESSING CDI WITH SUBSTERNAL TPM WIRES COILED AND MORTEZA DRAIN COMPRESSED WITH SCANT BLOODY DRAINAGE, RLE HARVEST SITES CDI, OPEN TO AIR CALL LIGHT WITHIN REACH 0900 TOOK AM MEDS WITHOUT DIFFICULTY, CVL DRESSING CHANGED PER PROTOCOL, SUBSTERNAL DRESSING CHANGED 0930 AMBULATED 60FT WITH THERAPY
--- NOTE | 2019-01-04 12:00 | NUR ---
REPORT GIVEN TO SANTANA SAAB
--- NOTE | 2019-01-04 12:15 | NUR ---
PATIENT UP IN CHAIR WITH NO SIGNS OF DISTRESS, CALL LIGHT IN REACH, DENIES PAIN, NO NEEDS AT THIS TIME
--- NOTE | 2019-01-04 12:30 | NUR ---
LUNCH TRAY TO CHAIR SIDE, INDEPENDENT WITH SET UP AND EATING
--- NOTE | 2019-01-04 13:15 | NUR ---
AMBULATED WITH PT IN CULVER, NO SIGN OF DISTRESS, VSS
--- NOTE | 2019-01-04 15:00 | NUR ---
RESTING IN CHAIR WITH NO SIGN OF DISTRESS, VSS, NO NEEDS AT THIS TIME
--- NOTE | 2019-01-04 16:00 | NUR ---
I AND O'S COMPLETED, FAMILY AT BEDSIDE, UPDATE GIVEN, NO NEEDS AT THIS TIME
--- NOTE | 2019-01-04 16:45 | NUR ---
DINNER TRAY TO BEDSIDE, INDEPENDENT WITH SET UP AND EATING
--- NOTE | 2019-01-04 18:00 | NUR ---
SLEEPING IN CHAIR WITH NO SIGNS OF DISTRESS, VSS, CALL LIGHT IN REACH
--- NOTE | 2019-01-04 19:00 | NUR ---
REPORT RECEIVED, INITIAL ASSESSEMENT COMPLETE PER FLOW SHEET, PT AAOx4, DENIES PAIN OR NEEDS, VSS, WILL CONTINUE TO ASSESS
--- NOTE | 2019-01-04 23:00 | NUR ---
REASSESSMENT COMPLETE PER FLOW SHEET, NO ACUTE CHANGES, PT AMBULATED TO BATHROOM, CLEAR YELLOW VOID NOTED, NO BM AT THIS TIME, PT AMBULATED BACK TO BED WITH MINIMAL ASSIST, REPOSITIONED IN BED FOPR COMFORT, VSS, WILL CONTINUE TO MONITOR
[2019-01-05] VITALS (28 sets, daily range): BP systolic 109–151; BP diastolic 72–113
--- NOTE | 2019-01-05 03:00 | NUR ---
REASSESSMENT COMPLETE SEE FLOW SHEET, NO ACUTE CHANGES OR DISTRESS NOTED, SUBSTERNAL DRSG CHANGED PER ORDERS INITIALLED AND DATED, COMPLETE BED BATH GIVEN, VSS, WILL CONTINUE TO MONITOR
--- NOTE | 2019-01-05 03:00 | NUR ---
REASSESSMENT COMPLETE PER FLOW SHEET, NO ACUTE CHANGES, REPOSITIONED IN BED, COMPLETE BED BATH AND LINEN CHANGE, VSS, WILL CONTINUE TO ASSESS
[2019-01-05 05:49] LABS: HEMATOCRIT 37.2 % (42.0-54.0); HEMOGLOBIN 12.7 g/dL (13.5-17.5); MCH 33.3 pg (26.0-34.0); MCHC 34.1 g/dL (31.0-37.0); MCV 97.6 fL (80.0-100.0); MEAN PLATELET VOLUME 10.2 fL (7.4-10.4); PLATELET COUNT 159 10x3/uL (130-400); RBC 3.81 10x6/uL (4.20-6.10); RDW 12.9 % (11.5-14.5); WBC 20.9 10x3/uL (4.8-10.8)
[2019-01-05 06:06] LABS: ALBUMIN 2.7 g/dL (3.4-5.0); ALKALINE PHOSPHATASE 45 U/L (46-116); ALT (SGPT) 28 U/L (10-68); BILIRUBIN - TOTAL 0.69 mg/dL (0.2-1.3); CALC OSMOLALITY 275 mosm/kg (275-300); CALCIUM 8.6 mg/dL (8.5-10.1); CARBON DIOXIDE 30.9 mmol/L (21.0-32.0); CHLORIDE - SERUM 101 mmol/L (98-107); CREATININE - SERUM 0.9 mg/dL (0.6-1.3); GLUCOSE 142 mg/dL (74-106); MAGNESIUM - SERUM 2.1 mg/dL (1.8-2.4); PHOSPHOROUS 1.6 mg/dL (2.5-4.9); POTASSIUM - SERUM 4.1 mmol/L (3.5-5.1); SODIUM 136 mmol/L (136-145); UREA NITROGEN 19 mg/dL (7-18); eGFR NON AFRICAN AMERICAN 88 mL/min (90-120)
[2019-01-05 06:22] LABS: LYMPHOCYTES 9 % (15-50); MONOCYTES 11 % (2-11); NEUTROPHILS 80 % (40-80); PLATELET ESTIMATE NORMAL
--- NOTE | 2019-01-05 10:30 | NUR ---
0700 PT RECIEVED UP IN CHAIR ALERT AND OREINTED VSS HR FIB/FLUTTER CONTROLLED, R IJ CVL DRESSING CDI,SL, MIDSTERNAL AND SUBSTERNAL DRESSINGS CDI WITH SUBSTERNAL TPM WIRES COILED, MORTEZA DRAIN COMPRESSED, RLE HARVEST SITES CDI, OPEN TO AIR, 0900 ATE 75% BREAKFAST, AM MEDS GIVEN PER EMAR, AMBULATED 250FT WITH PT
--- NOTE | 2019-01-05 11:56 | NUR ---
Nutrition Follow Up: Pt was asleep at the time of RD visit. Interview deferred at this time. POD 3 CABG Diet: ADA PO Intake: 84% meal avg I>O No BM since admit Wt stable Labs reviewed Meds noted including Lasix, Solu Medrol Rec continue current diet. RD following.
--- NOTE | 2019-01-05 16:52 | MORECARE ---
CASE MANAGEMENT DISCHARGE SUMMARY PATIENT: IVANNA HUITRON JR UNIT: [id number] ADM DATE: 01/02/19 AGE: 73 : 47 SEX: M [facility] AUTHOR: ALEXSANDER YAO PHYSICIAN: REFERRING PHYSICIAN: IRAM HAYNES MD DATE OF SERVICE: 01/05/19 Discharge Plan Patient Name: IVANNA HUITRON [facility] : 1945 Planned Disposition: Home Anticipated Discharge Date: Discharge Date: Expected LOS: Initial Reviewer: [email or web address] Initial Review Date: 01/04/2019 Generated: 01/05/19 5:51 pm DCPIA - Discharge Planning Initial Assessment Updated by [email or web address]: Dorinda Abbott on 01/05/19 4:51 pm * Is the patient Alert and Oriented? Yes * How many steps to enter\exit or inside your home? * PCP ERICKA * Pharmacy [facility] * Preadmission Environment Home with Family * ADLs Independent * Other Equipment NEBULIZER, W/C, WALKER, CANE, ROLLATOR, SHOWER CHAIR, BSC * List name and contact numbers for known caregivers / representatives who currently or will assist patient after discharge: DARIEN MO - GIRLFRIEND- [phone] * Verbal permission to speak to the caregivers and representatives has been obtained from the patient. Yes * Community resources currently utilized None * Additional services required to return to the preadmission environment? No * Can the patient safely return to the preadmission environment? Yes * Has this patient been hospitalized within the prior 30 days at any hospital? No Patient Name: IVANNA HUITRON Page [id number] at 1652 All edits/amendments must be made on the electronic document DICTATION DATE: 01/05/191650 MEDICAL CLERICAL ASSISTANT: PHYLICIA 01/05/191650 RPT#: [id number] DC DATE: STATUS: ADM IN [facility] [address] [place] [address] END OF REPORT
--- NOTE | 2019-01-05 17:01 | MORECARE ---
CASE MANAGEMENT DISCHARGE SUMMARY PATIENT: IVANNA HUITRON JR UNIT: [id number] ADM DATE: 01/02/19 AGE: 73 : [birth year] SEX: M ROOM/BED: [facility] AUTHOR: NAJMA,DOC PHYSICIAN: REFERRING PHYSICIAN: IRAM HAYNES MD DATE OF SERVICE: 01/05/19 Discharge Plan Patient Name: IVANNA HUITRON Facility: [facility]:[place] : 1945 Planned Disposition: Home Anticipated Discharge Date: Discharge Date: Expected LOS: Initial Reviewer: [email or web address] Initial Review Date: 01/04/2019 Generated: 01/05/19 6:01 pm Comments DCP- Discharge Planning Updated by [email or web address]: Dorinda Abbott on 01/05/19 3:[address] LATE ENTRY 01/04/19 @ 1630 Patient Name: IVANNA HUITRON Admission Status: Urgent Accout number: [id number] Admission Date: 01-02-2019 : 1945 Admission Diagnosis: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 Patient lives at home with his girlfriend Akanksha and plans to return there upon discharge. Patient feels this would be a safe discharge. CM discussed availability / needs of home health and medical equipment. Patient denies any discharge needs at this time. Patient may need walk test if 02 needed at discharge. Patient states he will have his family drive him home upon discharge. CM will continue to follow and assist as needed with discharge planning / needs. Leadership Coach: Dorinda Abbott DCPIA - Discharge Planning Initial Assessment Updated by [email or web address]: Dorinda Abbott on 01/05/19 4:51 pm * Is the patient Alert and Oriented? Yes * How many steps to enter\exit or inside your home? * PCP ERICKA * Pharmacy [facility] * Preadmission Environment Home with Family * ADLs Independent * Other Equipment NEBULIZER, W/C, WALKER, CANE, ROLLATOR, SHOWER CHAIR, BSC * List name and contact numbers for known caregivers / representatives who currently or will assist patient after discharge: AKANKSHA MO - GIRLFRIEND- [phone] * Verbal permission to speak to the caregivers and representatives has been obtained from the patient. Yes * Community resources currently utilized None * Additional services required to return to the preadmission environment? No * Can the patient safely return to the preadmission environment? Yes * Has this patient been hospitalized within the prior 30 days at any hospital? No Last DP export: 01/05/19 3:52 p Patient Name: IVANNA HUITRON Page [phone] at 1701 All edits/amendments must be made on the electronic document DICTATION DATE: 01/05/191699 ACCOUNTING TEACHER: PHYLICIA 01/05/191699 RPT#: [id number] DC DATE: STATUS: ADM IN [facility] [address] [place] [address] END OF REPORT
--- NOTE | 2019-01-05 18:25 | NUR ---
1200 ATE 75% LUNCH 1500 AMBULATED 500FT WITH PT 1700 AMBULATED WITH FAMILY, ATE 75% DINNER TRAY
--- NOTE | 2019-01-05 19:00 | NUR ---
REPORT RECEIVED, SHIFT ASSESSMENT PER FLOW SHEET, PT AAOx4 DENIES PAIN OR NEEDS, AMBULATES WITH MINIMAL ASSIST, I/S COMPLETED, ATRIAL FLUTTER ON CM, OTHER VSS, WILL CONTINUE TO MONITOR
--- NOTE | 2019-01-05 23:00 | NUR ---
REASSESSMENT COMPLETE PER FLOW SHEET, NO ACUTE CHANGES NOTED, ATRIAL FLUTTER ON CM, OTHER VSS, PT ON BIPAP, TOLLERATING WELL, SLEEPING FREQUENTLY, WILL CONTINUE TO ASSESS
--- NOTE | 2019-01-05 23:26 | NUR ---
PT C/O REFLUX WITH MILD FEELINGS OF NAUSEA, MED GIVEN PER MAR, PT DENIES OTHER PAINS OR NEEDS, VSS, WILL CONTINUE TO ASSESS
[2019-01-06] VITALS (19 sets, daily range): BP systolic 104–161; BP diastolic 65–95
[2019-01-06 06:42] LABS: BASOPHILS 0.1 % (0-2); HEMATOCRIT 37.5 % (42.0-54.0); HEMOGLOBIN 12.4 g/dL (13.5-17.5); LYMPHOCYTES 11.2 % (15-50); MCH 32.6 pg (26.0-34.0); MCHC 33.1 g/dL (31.0-37.0); MCV 98.7 fL (80.0-100.0); MEAN PLATELET VOLUME 10.1 fL (7.4-10.4); MONOCYTES 8.7 % (2-11); PLATELET COUNT 210 10x3/uL (130-400); RDW 13.2 % (11.5-14.5)
[2019-01-06 06:46] LABS: ALBUMIN 2.7 g/dL (3.4-5.0); ANION GAP 10.9 mmol/L (8-16); BILIRUBIN - TOTAL 0.69 mg/dL (0.2-1.3); CALCIUM 8.8 mg/dL (8.5-10.1); CARBON DIOXIDE 28.9 mmol/L (21.0-32.0); CREATININE - SERUM 1.1 mg/dL (0.6-1.3); POTASSIUM - SERUM 3.8 mmol/L (3.5-5.1); PROTEIN - SERUM 6.1 g/dL (6.4-8.2)
[2019-01-06 08:14] LABS: IMMUNOGLOBULIN A 161 mg/dL (61-437)
--- NOTE | 2019-01-06 10:43 | NUR ---
0715-RECIEVED AWAKE AND ALERT-VERBALLY APPROPRIATE-AFLUTTER ON MONITOR-R IJ SALINE LOCKED 0800-DR HAYNES AT BEDSIDE 0830-PARTNER AT BEDSIDE-QUESTIONS ADDRESSED IN FRONT OF PT ONLY 0950-DR MISHRA AT BEDSIDE 1040-Dorcas SUMNER FASHION BUYER NURSE AT BEDSIDE-PT EASILY ASSISTED TO BED
--- NOTE | 2019-01-06 12:08 | NUR ---
1050-PICC LINE PLACED 1115-PORT CXR DONE FOR PLACEMENT CONFIRMATION 1120-12 LEAD DONE 1210-PT SLEEPING
--- NOTE | 2019-01-06 13:00 | NUR ---
REMOVED R IJ PER POLICY/PROCEDURE-TOLERATED WELL / TIP INTACT-CHG BATH COMPLETED MINIMAL ASSISTANCE TO BED
--- NOTE | 2019-01-06 14:01 | NUR ---
Dorcas RAMON REMOVED PER PROTOCOL TOLERATED WELL-DRG CHANGED
--- NOTE | 2019-01-06 21:04 | NUR ---
CEFEPIME RECEIVED FROM PHARMACY. WILL ADMINISTER NOW.
[2019-01-07] VITALS (23 sets, daily range): BP systolic 110–148; BP diastolic 54–92
[2019-01-07 05:54] LABS: BASOPHILS 0.1 % (0-2); EOSINOPHILS 1.1 % (0-7); HEMATOCRIT 34.6 % (42.0-54.0); HEMOGLOBIN 11.6 g/dL (13.5-17.5); LYMPHOCYTES 10.7 % (15-50); MCH 32.8 pg (26.0-34.0); MCHC 33.5 g/dL (31.0-37.0); MCV 97.7 fL (80.0-100.0); MEAN PLATELET VOLUME 9.7 fL (7.4-10.4); MONOCYTES 8.8 % (2-11); NEUTROPHILS 77.3 % (40-80); PLATELET COUNT 180 10x3/uL (130-400); RBC 3.54 10x6/uL (4.20-6.10); RDW 13.4 % (11.5-14.5)
[2019-01-07 05:55] LABS: WBC 15.6 10x3/uL (4.8-10.8)
[2019-01-07 06:12] LABS: ALBUMIN 2.5 g/dL (3.4-5.0); ANION GAP 10.2 mmol/L (8-16); BILIRUBIN - TOTAL 0.57 mg/dL (0.2-1.3); CARBON DIOXIDE 28.9 mmol/L (21.0-32.0); CREATININE - SERUM 1.1 mg/dL (0.6-1.3); POTASSIUM - SERUM 4.1 mmol/L (3.5-5.1); PROTEIN - SERUM 5.7 g/dL (6.4-8.2)
--- NOTE | 2019-01-07 07:00 | NUR ---
REC'D UP IN CHAIR, VSS. PLEASANT W/O C/O.
--- NOTE | 2019-01-07 08:00 | NUR ---
ASSESSED. PLEASANT. PAIN 5/10- DECLINES MED AT THIS TIME.
--- NOTE | 2019-01-07 08:42 | NUR ---
PERCOCET X1 FOR BACK PAIN.
--- NOTE | 2019-01-07 09:20 | NUR ---
UP TO BR FOR BM, AMB W/O ANY ISSUE. STATES PAIN BETTER.
--- NOTE | 2019-01-07 10:31 | NUR ---
REMAINS UP IN CHAIR, DENIES ANY NEED. DR WATT ROUNDS.
--- NOTE | 2019-01-07 11:10 | NUR ---
REASSESSED W/O CHANGES. VSS.
--- NOTE | 2019-01-07 11:45 | NUR ---
AMBULATES 500 FT W/ MIN ASSIST- NITIN WELL. RETURNS TO BED.
--- NOTE | 2019-01-07 14:00 | NUR ---
EYES CLOSED/ RESP UNLABORED BUT WITH APNEIC PERIODS NOTED.
--- NOTE | 2019-01-07 16:27 | NUR ---
AMBULATED 500 FT W/O ADVERSE.
--- NOTE | 2019-01-07 16:50 | NUR ---
UP TO CHAIR POST AMBULATED.
--- NOTE | 2019-01-07 17:56 | NUR ---
REMAINS UP IN CHAIR. DENIES ANY NEED AT THIS TIME.
--- NOTE | 2019-01-07 18:39 | NUR ---
SO VISITS- UPDATED. AMBULATES IN CULVER W/O ADVERSE.
[2019-01-07 19:06] LABS: IGG SUBCLASS 1 260 mg/dL (248-810); IGG SUBCLASS 2 117 mg/dL (130-555); IGG SUBCLASS 3 28 mg/dL (15-102); IGG SUBCLASS 4 13 mg/dL (2-96); IMMUNOGLOBULIN G 451 mg/dL (700-1600)
[2019-01-08] VITALS (23 sets, daily range): BP systolic 94–156; BP diastolic 46–91
--- NOTE | 2019-01-08 03:00 | NUR ---
AWAKE AND ALERT. GIVEN ICE WATER PER REQUEST. DENIES NEEDS
[2019-01-08 06:00] LABS: HEMATOCRIT 34.2 % (42.0-54.0); HEMOGLOBIN 12.1 g/dL (13.5-17.5); MCH 34.4 pg (26.0-34.0); MCHC 35.4 g/dL (31.0-37.0); MCV 97.2 fL (80.0-100.0); MEAN PLATELET VOLUME 9.7 fL (7.4-10.4); RBC 3.52 10x6/uL (4.20-6.10); RDW 13.4 % (11.5-14.5); WBC 16.4 10x3/uL (4.8-10.8)
[2019-01-08 06:09] LABS: ANION GAP 11.9 mmol/L (8-16); CALCIUM 8.2 mg/dL (8.5-10.1); CARBON DIOXIDE 27.7 mmol/L (21.0-32.0); CREATININE - SERUM 1.1 mg/dL (0.6-1.3); POTASSIUM - SERUM 3.6 mmol/L (3.5-5.1)
--- NOTE | 2019-01-08 07:30 | NUR ---
REC'D SUPINE IN BED, EYES CLOSED/LOUD SNORING, NOTE APNEIC PERIOD OF 10 SEC. AWAKENA EASILY. ASSESSED. UP TO CHAIR. DECLINES OFFER OF PAIN MED ALTHOUGH RATES IT 6/10. MORE ARTHRITIC THAN INC. PLEASANT.
--- NOTE | 2019-01-08 09:30 | NUR ---
FAMILY IN AND UPDATED.
--- NOTE | 2019-01-08 11:00 | NUR ---
REASSESSED. AMB 500FT- NITIN WELL. AFVSS.
--- NOTE | 2019-01-08 11:30 | NUR ---
DR HAYNES IN- REMOVES TPW. ORDERS REC'D.
--- NOTE | 2019-01-08 13:00 | NUR ---
REMAINS UP IN CHAIR, DENIES ANY NEED AT THIS TIME.
--- NOTE | 2019-01-08 15:00 | NUR ---
REASSESSED. PLEASANT. UPSET THAT HE'S NOT GOING HOME TODAY OR TOMORROW- ALLOWED VENTING OF CONCERNS.
--- NOTE | 2019-01-08 16:30 | NUR ---
AMB 500FT- NITIN WELL.
--- NOTE | 2019-01-08 20:11 | NUR ---
Nutrition follow-up: Diet: ADA with po intake 75-100% of meals Labs reviewed Wt: 297# +BM RDN following.
--- NOTE | 2019-01-08 21:00 | NUR ---
PT IS AWAKE AND ALERT DENIES NEEDS AT THIS TIME. CALL LIGHT IN REACH
[2019-01-09] VITALS (12 sets, daily range): BP systolic 94–155; BP diastolic 51–109
--- NOTE | 2019-01-09 04:00 | NUR ---
PT HAS CONVERTED BACK TO SINUS RYTHMN.
--- NOTE | 2019-01-09 05:30 | NUR ---
PT BACK FROM RADIOLOGY. BED LINEN CHANGED. INDEPENDENTLY BATHED SELF. UP TO CHAIR AT BEDSIDE.
[2019-01-09 06:40] LABS: HEMATOCRIT 34.6 % (42.0-54.0); HEMOGLOBIN 11.8 g/dL (13.5-17.5); MCH 33.3 pg (26.0-34.0); MCHC 34.1 g/dL (31.0-37.0); MCV 97.7 fL (80.0-100.0); MEAN PLATELET VOLUME 9.6 fL (7.4-10.4); RBC 3.54 10x6/uL (4.20-6.10); RDW 13.6 % (11.5-14.5); WBC 17.6 10x3/uL (4.8-10.8)
--- NOTE | 2019-01-09 07:00 | NUR ---
PT SITTING UP IN CHAIR AWAKE ALERT AND ORIENTED. MIDSTERNAL INCISION CDI INTACT CLOSED WITH GLUE. WELL APPROXIMATED. SUBSTERNAL INCISION CLEAN AND DRY. RIGHT LEG HARVEST SITE INCISION CDI INTACT TIPPLE OILER AND WELL APPROXIMATED. VSS. IN NORMAL SINUS RHYTHM. WILL CONTINUE TO MONITOR
[2019-01-09 07:32] LABS: CALC OSMOLALITY 284 mosm/kg (275-300); CALCIUM 8.6 mg/dL (8.5-10.1); CARBON DIOXIDE 28.4 mmol/L (21.0-32.0); CHLORIDE - SERUM 105 mmol/L (98-107); GLUCOSE 109 mg/dL (74-106); POTASSIUM - SERUM 3.8 mmol/L (3.5-5.1); SODIUM 140 mmol/L (136-145); UREA NITROGEN 27 mg/dL (7-18); eGFR NON AFRICAN AMERICAN 78 mL/min (90-120)
--- NOTE | 2019-01-09 09:00 | NUR ---
PT ATE ALL OF BREAKFAST WHILE SITTING UP IN CHAIR. VSS. STILL IN NORMAL SINUS RHYTHM. PLACED O2 TO 2 L VIA NC TO KEEP O2 SATURATION ABOVE 92%. WILL CONTINUE TO MONITOR
--- NOTE | 2019-01-09 11:00 | NUR ---
PT SITTING UP IN CHAIR AWAKE ALERT AND ORIENTED. VSS.
[2019-01-09] MEDS ORDERED: AMIODARONE HCL200 MG PO (12:15)
--- NOTE | 2019-01-09 12:15 | NUR ---
AMBULATED PT DOWN CULVER AND BACK WITH NO OXYGEN TO MONITOR O2 SATURATION. PATIIENT REMAINED ABOVE 94%. DR. HAYNES SPOKE WITH PATIENT AND IS OKAY TO DISCHARGE HOME.
[2019-01-09] MEDS ORDERED: LOPRESSOR25 MG PO (12:16)
[2019-01-09] MEDS ORDERED: ASPIRIN EC81 M1 PO (12:17)
--- NOTE | 2019-01-09 12:58 | MORECARE ---
CASE MANAGEMENT DISCHARGE SUMMARY PATIENT: IVANNA HUITRON JR UNIT: [id number] ADM DATE: 01/02/19 AGE: 73 : [birth year] SEX: M [facility] AUTHOR: NAJMA,DOC PHYSICIAN: REFERRING PHYSICIAN: IRAM HAYNES MD DATE OF SERVICE: 01/09/19 Discharge Plan Patient Name: IVANNA HUITRON Facility: [facility]:[place] : 1945 Planned Disposition: Home Anticipated Discharge Date: Discharge Date: Expected LOS: Initial Reviewer: [email or web address] Initial Review Date: 01/04/2019 Generated: 01/09/19 1:58 pm Comments DCP- Discharge Planning Updated by [email or web address]: Love Mercer on 01/09/19 11:[address] Patient Name: IVANNA HUITRON Encounter No: [id number] : 1945 Primary Insurance: NOVASYEyelationCR Anticipated DC Date: Planned Disposition: Home with significant other External Planned Provider: :[Ext Provider Name] DCP follow-up note: Patient in agreement with discharge plan. No changes to plan. Patient denied dc needs. DC IMM delivered, explained, signed by the patient, and placed in his chart. Signed form also left with patient. Patient reports his significant other will transport him home today. Love Mercer RN, [facility] DCP- Discharge Planning Updated by [email or web address]: Dorinda Abbott on 01/05/19 3:[address] LATE ENTRY 01/04/19 @ 1630 Patient Name: IVANNA HUITRON Admission Status: Urgent Accout number: [id number] Admission Date: 01-02-2019 : 1945 Admission Diagnosis:ATHSCL HEART DISEASE OF [place] CORONARY ARTERY W/O ANG Attending: IRAM HAYNES Current LOS: 3 Anticipated DC Date: Planned Disposition: Home Primary Insurance: NOVASYSMCR Discharge Planning Comments: CM met with patient at bedside after explaining CM role and obtaining verbal consent. Patient lives at home with his girlfriend Akanksha and plans to return there upon discharge. Patient feels this would be a safe discharge. CM discussed availability / needs of home health and medical equipment. Patient denies any discharge needs at this time. Patient may need walk test if 02 needed at discharge. Patient states he will have his family drive him home upon discharge. CM will continue to follow and assist as needed with discharge planning / needs. Merchandise Flow Team Member: Dorinda RING - Discharge Planning Initial Assessment Updated by [email or web address]: Dorinda Abbott on 01/05/19 4:51 pm * Is the patient Alert and Oriented? Yes * How many steps to enter\exit or inside your home? * PCP ERICKA * Pharmacy [facility] * Preadmission Environment Home with Family * ADLs Independent * Other Equipment NEBULIZER, W/C, WALKER, CANE, ROLLATOR, SHOWER CHAIR, BSC * List name and contact numbers for known caregivers / representatives who currently or will assist patient after discharge: AKANKSHA MO - GIRLFRIEND- [phone] * Verbal permission to speak to the caregivers and representatives has been obtained from the patient. Yes * Community resources currently utilized None * Additional services required to return to the preadmission environment? No * Can the patient safely return to the preadmission environment? Yes * Has this patient been hospitalized within the prior 30 days at any hospital? No Last DP export: 01/05/19 4:01 p Patient Name: IVANNA HUITRON Page 53081 at 1258 All edits/amendments must be made on the electronic document DICTATION DATE: 01/09/191257 WAREHOUSING TECHNICIAN: PHYLICIA 01/09/191257 RPT#: [id number] DC DATE: STATUS: ADM IN [facility] [address] [place] [address] END OF REPORT
--- NOTE | 2019-01-09 13:30 | NUR ---
DISCHARGE INSTRUCTIONS GIVEN.
--- NOTE | 2019-01-09 13:48 | NUR ---
pt medication list has been finalized with discharge. Dr Laura had notes that he wanted pt discharged on Breo, albuterol, flonase and singulair. Discharge meds include albuterol and duoneb. Dr Laura said was ok to not include Breo or singular and the PRN albuterol and duneb will be ok. Flonase is in discharge medication list.
--- NOTE | 2019-01-09 14:18 | NUR ---
RESEARCH INVESTIGATOR HERE TO DC PICC LINE TO RIGHT UPPER ARM
--- NOTE | 2019-01-09 14:21 | NUR ---
48 CM POWER PICC REMOVED WITHOUT BLEEDING OR RESISTENCE. PT NITIN WELL. INSTRUCTED TO LEAVE CLEAR OCCLUSIVE DRSG IN PLACE X 24 HOURS. PT VOICED UNDERSTANDING.
--- NOTE | 2019-01-09 14:50 | NUR ---
DISCHARGED PATIENT TO VEHICLE VIA WHEEL CHAIR WITH ALL BELONGINGS.
--- NOTE | 2019-01-10 18:14 | MORECARE ---
CASE MANAGEMENT DISCHARGE SUMMARY PATIENT: IVANNA HUITRON JR UNIT: [id number] ADM DATE: 01/02/19 AGE: 73 : [birth year] SEX: M [facility] AUTHOR: NAJMA,DOC PHYSICIAN: REFERRING PHYSICIAN: IRAM HAYNES MD DATE OF SERVICE: 01/10/19 Discharge Plan Patient Name: IVANNA HUITRON Facility: [facility]:[place] : 1945 Planned Disposition: Home Anticipated Discharge Date: Discharge Date: 01/09/2019 Expected LOS: Initial Reviewer: [email or web address] Initial Review Date: 01/04/2019 Generated: 01/10/19 7:14 pm Comments DCP- Discharge Planning Updated by [email or web address]: Love Mercer on 01/09/19 11:[address] Patient Name: IVANNA HUITRON Encounter No: [id number] : 1945 Primary Insurance: [email or web address] Anticipated DC Date: Planned Disposition: Home with significant other External Planned Provider: :[Ext Provider Name] DCP follow-up note: Patient in agreement with discharge plan. No changes to plan. Patient denied dc needs. DC IMM delivered, explained, signed by the patient, and placed in his chart. Signed form also left with patient. Patient reports his significant other will transport him home today. Love Mercer RN, 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 Patient lives at home with his girlfriend Akanksha and plans to return there upon discharge. Patient feels this would be a safe discharge. CM discussed availability / needs of home health and medical equipment. Patient denies any discharge needs at this time. Patient may need walk test if 02 needed at discharge. Patient states he will have his family drive him home upon discharge. CM will continue to follow and assist as needed with discharge planning / needs. Workplace Rehabilitation Officer: Dorinda RING - Discharge Planning Initial Assessment Updated by [email or web address]: Dorinda Abbott on 01/05/19 4:51 pm * Is the patient Alert and Oriented? Yes * How many steps to enter\exit or inside your home? * PCP ERICKA * Pharmacy [facility] * Preadmission Environment Home with Family * ADLs Independent * Other Equipment NEBULIZER, W/C, WALKER, CANE, ROLLATOR, SHOWER CHAIR, BSC * List name and contact numbers for known caregivers / representatives who currently or will assist patient after discharge: AKANKSHA MO - GIRLFRIEND- [phone] * Verbal permission to speak to the caregivers and representatives has been obtained from the patient. Yes * Community resources currently utilized None * Additional services required to return to the preadmission environment? No * Can the patient safely return to the preadmission environment? Yes * Has this patient been hospitalized within the prior 30 days at any hospital? No Last DP export: 01/09/19 11:58 a Patient Name: IVANNA HUITRON Page [id number] at 1814 All edits/amendments must be made on the electronic document DICTATION DATE: 01/10/191812 TRAIN CREW MEMBER: PHYLICIA 01/10/191812 RPT#: [id number] DC DATE:01/09/19 STATUS: DIS IN [facility] [address] [place] [address] END OF REPORT
--- NOTE | 2019-01-13 11:27 | TEE ---
PATIENT:IVANNA HUITRON JR MEDICAL RECORD: [id number] LOCATION:[place] [address] AGE OF PATIENT: 73 ADMISSION DATE: 01/02/19 SEX: M REFERRING PHYSICIAN: INTERPRETING PHYSICIAN: BRUCE HUDDLESTON MD TRANSESOPHAGEAL ECHOCARDIOGRAM Date: 01/02/19 KELLIE CHARGE Y INDICATIONS: PREMEDICATIONS: PATIENT'S RESPONSE PROCEDURE DOPPLER MEASUREMENTS: LVIT LA PA RA LVOT RVOT Asc. Ao AV Gradient Peak AV Mean AV Area MV Gradient Peak MV Mean MV Area INTERPRETATION: Doppler: 2-D: COLOR FLOW DOPPLER NORMAL SALINE STUDY: MISCELLANOUS: LVD:4.4 LVS:3.2 DIAGNOSIS: PLAN: Adult Specialist:1 Dr. Huddleston Sports Equipment Racker: Mar VAZQUEZ COMMENTS: DATE OF SERVICE: 01/02/2019 PROCEDURE: Transesophageal echo evaluation of valvular structures during bypass surgery. FINDINGS: 1. Left ventricular chamber size is within normal limits. Left ventricular systolic function is normal. Overall ejection fraction estimated at 50%. 2. Left atrium, right atrium, and right ventricular chamber sizes are within TRANSESOPHAGEAL ECHOCARDIOGRAM REPORT [id number] IVANNA HUITRON normal limits. 3. Valvular structures have normal structure and motion. 4. Doppler interrogation reveals trace mitral regurgitation only. No other valvular insufficiency or stenosis. 5. No evidence of pericardial effusion or left ventricular thrombus. TRANSINT:[id number] Voice Confirmation ID: [id number] DOCUMENT ID: [id number] at 1127 CC: [id number] DICTATION DATE: 01/03/19 1112 NURSE PRACTITIONER MANAGER: 01/03/19 2221 DIS IN 01/09/19 [facility] [address] [place] [id number]
[2019-01-14 12:10] LABS: IMMUNOGLOBULIN E 18 IU/mL (6-495)
== END 2019-01-09 14:51 | disposition home or self-care (01) | DRG 236 ==
LOC: D.SDCHOLD 13:00 → D.CVICU 01-02 05:00 → D.SDCHOLD 01-02 05:00 → D.CVICU 01-02 12:37 → D.SDCHOLD 01-02 13:00 → D.CVICU 01-09 14:51
PROVIDERS: Internal Medicine Pulmonary Disease; ADMIT Thoracic Surgery (Cardiothoracic Vascular Surgery); ATTEND Thoracic Surgery (Cardiothoracic Vascular Surgery)
PROC: 021209W Bypass Coronary Artery, Three Arteries from Aorta with Autologous Venous Tissue, Open Approach (ICD-10-PCS; 2019-01-02)
PROC: 06BP4ZZ Excision of Right Saphenous Vein, Percutaneous Endoscopic Approach (ICD-10-PCS; 2019-01-02)
PROC: 5A1221Z Performance of Cardiac Output, Continuous (ICD-10-PCS; 2019-01-02)
PROC: B24BZZ4 Ultrasonography of Heart with Aorta, Transesophageal (ICD-10-PCS; 2019-01-02)
PROC: 02100Z9 Bypass Coronary Artery, One Artery from Left Internal Mammary, Open Approach (ICD-10-PCS; principal; 2019-01-02 07:30)
PROC: 05HY33Z Insertion of Infusion Device into Upper Vein, Percutaneous Approach (ICD-10-PCS; 2019-01-06)
DX: I25.110 Atherosclerotic heart disease of native coronary artery with unstable angina pectoris (principal); J98.11 Atelectasis; J90 Pleural effusion, not elsewhere classified; J45.901 Unspecified asthma with (acute) exacerbation; I48.92 Unspecified atrial flutter; K21.9 Gastro-esophageal reflux disease without esophagitis; R05 Cough; I10 Essential (primary) hypertension; E78.5 Hyperlipidemia, unspecified; M19.90 Unspecified osteoarthritis, unspecified site; E11.9 Type 2 diabetes mellitus without complications; D64.9 Anemia, unspecified; Z79.4 Long term (current) use of insulin; J44.9 Chronic obstructive pulmonary disease, unspecified; G89.29 Other chronic pain; G47.00 Insomnia, unspecified; I48.91 Unspecified atrial fibrillation

== ENCOUNTER → 2019-01-30 09:52 | Outpatient (CLI) | payer OTHER ==
[2019-01-03 08:25] VITALS: BMI 36.9
[~2019-01-30 09:52] MED LIST changes: +AMIODARONE HCL200 MG PO; +ASPIRIN EC81 M1 PO; +HYDROCODON-ACE1 EA10 PO; +LOPRESSOR25 MG PO
[2019-01-30 10:17] LABS: HEMOGLOBIN 12.4 g/dL (13.5-17.5); MCH 32.6 pg (26.0-34.0); MCHC 33.5 g/dL (31.0-37.0); MCV 97.4 fL (80.0-100.0); MEAN PLATELET VOLUME 10.1 fL (7.4-10.4); RBC 3.8 10x6/uL (4.20-6.10); RDW 13.5 % (11.5-14.5); WBC 9.1 10x3/uL (4.8-10.8)
[2019-01-30 10:31] LABS: ALBUMIN 3.1 g/dL (3.4-5.0); ALKALINE PHOSPHATASE 130 U/L (46-116); ALT (SGPT) 20 U/L (10-68); BILIRUBIN - TOTAL 0.41 mg/dL (0.2-1.3); CALC OSMOLALITY 280 mosm/kg (275-300); CALCIUM 9.2 mg/dL (8.5-10.1); CARBON DIOXIDE 23.2 mmol/L (21.0-32.0); CHLORIDE - SERUM 106 mmol/L (98-107); GLUCOSE 102 mg/dL (74-106); POTASSIUM - SERUM 3.8 mmol/L (3.5-5.1); PROTEIN - SERUM 7.2 g/dL (6.4-8.2); SODIUM 141 mmol/L (136-145); UREA NITROGEN 13 mg/dL (7-18); eGFR NON AFRICAN AMERICAN 78 mL/min (90-120)
== END | disposition home or self-care (01) ==
LOC: D.LAB 09:52 → EDSTATUS 10:00
PROVIDERS: ATTEND Thoracic Surgery (Cardiothoracic Vascular Surgery)
DX: J90 Pleural effusion, not elsewhere classified (principal); D64.9 Anemia, unspecified